=== PATIENT | female | born 1980 | race Caucasian/White ===

== ENCOUNTER 2016-12-24 10:08 | Day surgery (SDC) | payer BC ==
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
[~2016-12-24 10:08] MED LIST: ALLEGRA180 PO; AUG250 PO; CELEXA40 MG PO; DORYX150 MG PO; GYNODIOL2 MG PO; HAIR SKIN & NAILS PO; MULTIPLE VIT PO; NEUR600 PO; NUCYNTA50 MG PO; PCET PO; SPIRO50 PO; ZANAFLEX 4 MG TA4 MG PO
== END 2016-12-24 15:51 | disposition home or self-care (01) ==
LOC: SDC 10:08
PROVIDERS: Podiatrist
PROC: 0QBM4ZZ Excision of Left Tarsal, Percutaneous Endoscopic Approach (ICD-10-PCS; 2016-12-24)
PROC: 0SBG4ZZ Excision of Left Ankle Joint, Percutaneous Endoscopic Approach (ICD-10-PCS; principal; 2016-12-24 11:45)
DX: M65.872 Other synovitis and tenosynovitis, left ankle and foot (principal); M21.6X2 Other acquired deformities of left foot; L70.9 Acne, unspecified; F41.1 Generalized anxiety disorder; F32.9 Major depressive disorder, single episode, unspecified; F17.210 Nicotine dependence, cigarettes, uncomplicated; Z90.710 Acquired absence of both cervix and uterus; Z98.890 Other specified postprocedural states; Z88.2 Allergy status to sulfonamides; Z88.5 Allergy status to narcotic agent; Z88.6 Allergy status to analgesic agent; Z79.2 Long term (current) use of antibiotics; Z79.818 Long term (current) use of other agents affecting estrogen receptors and estrogen levels; Z79.899 Other long term (current) drug therapy
CPT/HCPCS: 88304; A9270-GY; J0690; J2250; J2405; J2710; J3010